=== PATIENT | male | born 1960 | race Hispanic/Latino ===

== ENCOUNTER → 2018-04-23 | Day surgery (SDC) | payer OTHER ==
[~2018-04-23] MED LIST: AMLODIPINE BESY10 MG PO; ASPIRIN325 MG PO; ENALAPRIL MALEA20 MG PO; FENTANYL CITRATE/PF 100MCG/2 ML INJ ONE; LOVAZA1 GM PO; MIDAZOLAM HCL 2 MG/2 ML VIAL ONE; PROPOFOL IV EMULSION 10 MG/ML 50 ML VIAL ONE
[2018-04-23 10:05] VITALS: BP 106/70
--- OUTSIDE RECORDS SUMMARY | 2018-04-30 12:15 | XMS REPORT ---
Author Author [facility] Address Unknown Phone Unavailable Care Team Providers Care Lace Inspector Name Role Phone Unavailable Unavailable Problems This patient has no known problems. Allergies, Adverse Reactions, Alerts This patient has no known allergies or adverse reactions. Medications This patient has no known medications. Results Test Description Test Time Test Comments Text Results Atomic Results Result Comments CR - XRAY ARTHROGRAM WRIST LT / INJECTION 2018-03-04 13:36:46 CLINICAL INDICATION: S52.572A Oth intartic fracture of lower end of left radius, init.TECHNIQUE: Risks and benefits of the examination were discussed with the patient. Informed consent was obtained. The patient was prepped and draped in the usual sterile fashion. Local anesthesia was affected with lidocaine 1% without epinephrine, administered subcutaneously. A 25 gauge needle was directed into the left radiocarpal compartment under fluoroscopic guidance via dorsal approach. A small amount of nonionic contrast was injected, demonstrating intra-articular position of needle tip. Subsequently, approximately 4 ml Optiray-300 was injected into the joint without incident. Spot films were obtained. No complications were encountered.Total fluoroscopy time: 14 secondsTotal number images: 4FINDINGS:COMPARISON: None.Arthrographic appearance of the radiocarpal compartment is unremarkable. Contrast communication between the radiocarpal compartment and distal radioulnar compartment is seen.IMPRESSION:Technically successful intra-articular gadolinium injection, left wrist. Post arthrogram MRI is reported separately.Radiology Exposure Data - PQRS 145: 6045F For Official Use Only
== END | disposition home or self-care (01) ==
LOC: OR 06:38
PROVIDERS: ATTEND Internal Medicine Gastroenterology
DX: K29.00 Acute gastritis without bleeding (principal); K29.50 Unspecified chronic gastritis without bleeding; B96.81 Helicobacter pylori [H. pylori] as the cause of diseases classified elsewhere; K21.0 Gastro-esophageal reflux disease with esophagitis; K29.80 Duodenitis without bleeding; K26.9 Duodenal ulcer, unspecified as acute or chronic, without hemorrhage or perforation; K59.00 Constipation, unspecified; I10 Essential (primary) hypertension; E78.5 Hyperlipidemia, unspecified; E66.01 Morbid (severe) obesity due to excess calories; Z01.810 Encounter for preprocedural cardiovascular examination; Z79.82 Long term (current) use of aspirin; Z68.41 Body mass index [BMI] 40.0-44.9, adult
CPT/HCPCS: 43239; 93005; J2250

== ENCOUNTER → 2018-04-30 | Day surgery (SDC) | payer OTHER ==
[~2018-04-30] MED LIST changes: +HYOSCYAMINE SULFATE 0.5 MG/ML INJ ONE; +SIMETHICONE 40 MG/0.6 ML BTL ONE
[2018-04-30 08:35] VITALS: BP 119/71
== END | disposition home or self-care (01) ==
LOC: OR 05:16
PROVIDERS: ATTEND Internal Medicine Gastroenterology
DX: Z12.11 Encounter for screening for malignant neoplasm of colon (principal); D12.2 Benign neoplasm of ascending colon; D12.3 Benign neoplasm of transverse colon; D12.4 Benign neoplasm of descending colon; D12.5 Benign neoplasm of sigmoid colon; D12.8 Benign neoplasm of rectum; K57.30 Diverticulosis of large intestine without perforation or abscess without bleeding; K59.00 Constipation, unspecified; K64.8 Other hemorrhoids; R12 Heartburn; I10 Essential (primary) hypertension; Z79.82 Long term (current) use of aspirin; Z68.41 Body mass index [BMI] 40.0-44.9, adult
CPT/HCPCS: 45384; 45385; J1980; J2250; 45378

== ENCOUNTER → 2025-01-02 | Day surgery (SDC) | payer OTHER ==
[~2025-01-02] MED LIST changes: +ALTOPREV40 MG PO; +ATORVASTATIN CA20 MG PO; +AVODART0.5 MG PO; -FENTANYL CITRATE/PF 100MCG/2 ML INJ ONE; +ICOSAPENT ETHYL1 GM PO; +LIDOCAINE HCL 2% LOCAL INJ 5 ML SDV VIAL INJ ONE; +METFORMIN HCL500 M2 PO; -MIDAZOLAM HCL 2 MG/2 ML VIAL ONE; +OXYBUTYNIN CHLOR5 MG PO; +PROPOFOL IV EMULSION 10 MG/ML 20 ML VIAL ONE; -PROPOFOL IV EMULSION 10 MG/ML 50 ML VIAL ONE; +PROPOFOL IV EMULSION 50 ML IV ONE; -SIMETHICONE 40 MG/0.6 ML BTL ONE; +ZESTRIL10 MG PO
[2025-01-02] MEDS: LACTATED RINGER'S 1,000 ML ONE (06:05)
[2025-01-02 08:07] VITALS: TEMP 97.6
[2025-01-02 08:35] VITALS: BP 128/90; PULSE 81; RESP 15; O2SAT 95
== END | disposition home or self-care (01) ==
LOC: OR 05:41
PROVIDERS: ATTEND Internal Medicine Gastroenterology
DX: Z12.11 Encounter for screening for malignant neoplasm of colon (principal); D12.2 Benign neoplasm of ascending colon; D12.3 Benign neoplasm of transverse colon; K29.60 Other gastritis without bleeding; K57.30 Diverticulosis of large intestine without perforation or abscess without bleeding; K21.00 Gastro-esophageal reflux disease with esophagitis, without bleeding; K44.9 Diaphragmatic hernia without obstruction or gangrene; K63.89 Other specified diseases of intestine; K64.1 Second degree hemorrhoids; I10 Essential (primary) hypertension; N40.0 Benign prostatic hyperplasia without lower urinary tract symptoms; E66.01 Morbid (severe) obesity due to excess calories; E11.9 Type 2 diabetes mellitus without complications; Z79.82 Long term (current) use of aspirin; Z01.810 Encounter for preprocedural cardiovascular examination; Z01.812 Encounter for preprocedural laboratory examination; Z68.41 Body mass index [BMI] 40.0-44.9, adult
CPT/HCPCS: 36415; 43239; 45384; 45385; 82948; 93005; J1980; J2003; J2704 ×2; J7121; 45378